=== PATIENT | female | born 1990 | race Caucasian/White ===

== ENCOUNTER 2016-12-19 03:33 | Emergency (ER) | payer OTHER ==
[~2016-12-19] VITALS: Ht 165.1 cm; Wt 70.3 kg
[~2016-12-19 03:33] MED LIST: FERRALET 90 TA1 EACH PO; IBUPROFEN800 M1 PO; LASIX20 M1 PO; PERCOCET 5-3251 EACH PO; POTASSIUM CHLO20 ME2 PO; PRENATAL TABLE1 EAC2 PO
--- NOTE | 2016-12-19 03:51 | ED NECK/BACK PAIN COMPLAINT ---
History of Present Illness General Chief Complaint: General Adult Stated Complaint: MID BACK PAIN TRAVELS TO [facility] Source: patient Exam Limitations: no limitations Vital Signs & Intake/Output Vital Signs & Intake/Output Vital Signs Date Time Temp Pulse Resp B/P Pulse O2 O2 Flow FiO2 Ox Delivery Rate 12/19 0449 97.4 87 18 111/57 97 Room Air 12/19 0414 Room Air 12/19 0350 97.5 93 18 139/79 97 Room Air Allergies Coded Allergies: NO KNOWN ALLERGIES (01/09/16) Reconcile Medications Furosemide (Lasix) 20 MG TABLET 1 TAB PO DAILY edema Ibuprofen 800 MG TABLET 1 TAB PO TID PAIN Ibuprofen 800 MG TABLET 800 MG PO Q6P PRN PAIN SCALE 4-6 Iron Carb,Gl/FA/B12/C/Docusate (Ferralet 90 Tablet) 1 EACH TABLET 1 TAB PO DAILY anemia Oxycodone HCl/Acetaminophen (Percocet 5-325 MG Tablet) 1 EACH TABLET 1-2 TAB PO Q4P PRN PAIN Potassium Chloride 20 MEQ TAB.ER.PRT 1 TAB PO D electrolyte support Vit No.130/Iron/FA ( Tablet) 1 EACH TABLET 1 TAB PO DAILY vitamin support Triage Nurses Notes Reviewed? yes Onset: Abrupt Duration: hour(s): (3) Timing: single episode today Quality/Severity: moderate, dullness Location: lumbar spine Radiation: ABDOMEN Context: FROM SLEEP Method of Injury: NONE Modifying Factors: movement HPI: 26-year-old healthy breast-feeding female who presents to the ER with chief complaint of 3 hours worth of back pain bilaterally that radiates to the front of her abdomen. No nausea or vomiting. No fever or chills. She states the pain woke her up from sleep. She last ate yesterday around noon had a sandwich. She has some coffee in the evening. History of similar symptoms that self resolves on its own. She denies any history of gallbladder stones UTIs or pyelonephritis. Patient has no chest pain is not short of breath. She is not on control pills. Past History Travel History Traveled to [place] past 21 day No Medical History Any Pertinent Medical History? none Tetanus Vaccine: Surgical History Surgical History: non-contributory Psychosocial History What is your primary language Bulgarian Family History Hx Contributory? No Review of Systems Review of Systems Constitutional: Denies: chills, fever. Eyes: Reports: no symptoms. Ears, Nose, Throat, Mouth: Reports: no symptoms. Respiratory: Denies: cough, short of breath. Cardiovascular: Denies: chest pain, palpitations. Gastrointestinal/Abdominal: Reports: abdominal pain. Denies: diarrhea, nausea, vomiting. Musculoskeletal: Reports: back pain, muscle pain. Skin: Denies: erythema, rash. Neurological/Psychological: Reports: no symptoms. All Other Systems: Reviewed and Negative Physical Exam Physical Exam General Appearance: well developed/nourished, alert, awake, mild distress Head: atraumatic Eyes: Bilateral: PERRL, EOMI. Ears, Nose, Throat, Mouth: hearing grossly normal Neck: normal inspection, supple, full range of motion Respiratory: normal breath sounds Cardiovascular: regular rate/rhythm Peripheral Pulses: 2+ radial (R), 2+ radial (L) Gastrointestinal: normal bowel sounds, soft, non-tender, NO REBOUND OR GUARDING Back: normal inspection, normal range of motion, PAIN WITH RANGE OF MOTION Extremities: normal range of motion Straight Leg Raising: Right: Negative. Left: Negative. Neurologic/Psych: awake, alert, oriented x 3, normal mood/affect Skin: intact, normal color, warm/dry Progress Differential Diagnosis: myofascial strain, pyelo/UTI, T/L spine injury, GERD, PUD, PANCREATITIS, CHOLELITHIASIS Plan of Care: Orders Procedure Date/time Status URINALYSIS 12/19 350 Complete LIPASE 12/19 350 Complete COMPREHENSIVE METABOLIC PANEL 12/19 350 Complete CBC WITHOUT DIFFERENTIAL 12/19 350 Complete Laboratory Tests 12/19/16 0402: Anion Gap 8, Estimated GFR > 60, BUN/Creatinine Ratio 22.9, Glucose 97, Calcium 9.7, Total Bilirubin 0.3, AST 16, ALT 33, Alkaline Phosphatase 65, Total Protein 6.8, Albumin 4.0, Globulin 2.8, Albumin/Globulin Ratio 1.4, Lipase 118, CBC w Diff NO MAN DIFF REQ, RBC 4.56, MCV 86.5, MCH 28.8, RDW 13.5, MPV 8.5, Gran % 66.6, Lymphocytes % 24.6, Monocytes % 6.2, Eosinophils % 2.1, Basophils % 0.5, Absolute Granulocytes 6.2, Absolute Lymphocytes 2.3, Absolute Monocytes 0.6, Absolute Eosinophils 0.2, Absolute Basophils 0, PUBS MCHC 33.3 12/19/16 0355: Urinalysis LIGHT H, Urine Color YEL, Urine Clarity HAZY H, Urine pH 6.0, Ur Specific [place] >= 1.030, Urine Protein 30 H, Urine Ketones TRACE H, Urine Nitrite NEG, Urine Bilirubin NEG, Urine Urobilinogen 0.2, Ur Leukocyte Esterase NEG, Ur Microscopic SEDIMENT EXAMINED, Urine RBC RARE, Urine WBC 1-3 H, Ur Epithelial Cells MANY H, Urine Bacteria MANY H, Urine Mucus FEW, Urine Hemoglobin NEG, Urine Glucose NEG PAIN RELIEF AFTER IM TORADOL. W/U UNREMARKABLE. 4:30 am reports relief after IM toradol. CMP pending. (PA HALEY,JIN) Departure Departure Time of Disposition: 443 Disposition: HOME OR SELF CARE Condition: Stable Clinical Impression Primary Impression: Low back strain Referrals: OSMANY HALEY,BALDO Salas (PCP/Family) Additional Instructions: TAKE THE IBUPROFEN 800MG DIRECTED. USE A HEATING PAD FOR PAIN RELIEF. PLEASE FOLLOW UP WITH YOUR DOCTOR REGARDING THESE EPISODES OF ABDOMINAL PAIN. RETURN TO THE ER FOR ANY CHANGING OR WORSENING SYMPTOMS. Departure Forms: Customer Survey General Discharge Information Prescriptions: Current Visit Scripts Ibuprofen 1 TAB PO TID #30 TAB
[2016-12-19 04:11] LABS: ABSOLUTE BASOPHIL COUNT 0 /CUMM (0.0-0.2); ABSOLUTE EOSINOPHIL COUNT 0.2 /CUMM (0.0-0.7); ABSOLUTE GRANULOCYTE CT 6.2 /CUMM (1.4-6.5); ABSOLUTE LYMPH COUNT 2.3 /CUMM (1.2-3.4); ABSOLUTE MONOCYTE COUNT 0.6 /CUMM (0.10-0.60); BASOPHIL % 0.5 % (0.0-2.0); EOSINOPHIL % 2.1 % (0-5); GRANULOCYTE % 66.6 % (42.2-75.2); HEMATOCRIT 39.5 % (37-47); MEAN CORPUSCULAR HGB 28.8 PG (27.0-31.0); MEAN CORPUSCULAR HGB CONC 33.3 G/DL (33.0-37.0); MEAN CORPUSCULAR VOLUME 86.5 FL (81.0-99.0); MEAN PLATELET VOLUME 8.5 FL (7.4-10.4); PLATELET COUNT 261 /CUMM (130-400); RBC DISTRIBUTION WIDTH 13.5 % (11.5-14.5); RED BLOOD CELL CT 4.56 /CUMM (4.20-5.40); WHITE BLOOD CELL COUNT 9.4 /CUMM (4.8-10.8)
[2016-12-19] MEDS ORDERED: IBUPROFEN800 M1 PO (04:45)
[2016-12-19 04:49] VITALS: BP 111/57
== END 2016-12-19 04:57 ==
LOC: ERH 03:33
PROVIDERS: Emergency Medicine
DX: S39.012A Strain of muscle, fascia and tendon of lower back, initial encounter (principal)
CPT/HCPCS: 81001; 96372; J1885

== ENCOUNTER 2017-03-24 10:02 | Emergency (ER) | payer OTHER ==
[~2017-03-24] VITALS: Ht 157.5 cm; Wt 86.2 kg
--- NOTE | 2017-03-24 10:59 | RADIOLOGY REPORT ---
EXAMINATION: XR TOES, LEFT CLINICAL INFORMATION: Pain to left great toe for 3 days COMPARISON: PA foot 06/14/2009. TECHNIQUE: 3 views of the great toe including a PA view of the foot obtained. FINDINGS: The alignment is normal. A lucency is seen through the lateral sesamoid at the head of the first metatarsal bone consistent with a minimally displaced sesamoid fracture. Correlate with tenderness in this region. There is associated soft tissue swelling. The phalanges are normal in appearance. IMPRESSION: Minimally displaced sesamoid fracture is seen adjacent to the first metatarsal bone.
[2017-03-24 11:15] VITALS: BP 128/76
--- NOTE | 2017-03-24 11:51 | ED UPPER/LOWER EXTREMITY COMPL ---
History of Present Illness General Chief Complaint: Foot or Ankle Injury Stated Complaint: LFT FOOT GREAT TOE PAIN/ NO KNOWN INJURY X 3DYS Source: patient Exam Limitations: no limitations Vital Signs & Intake/Output Vital Signs & Intake/Output Vital Signs Date Time Temp Pulse Resp B/P B/P Pulse O2 O2 Flow FiO2 Mean Ox Delivery Rate 03/24 1009 98.0 86 14 130/81 98 Room Air Allergies Coded Allergies: NO KNOWN ALLERGIES (01/09/16) Reconcile Medications Furosemide (Lasix) 20 MG TABLET 1 TAB PO DAILY edema Ibuprofen 800 MG TABLET 1 TAB PO TID PAIN Ibuprofen 800 MG TABLET 800 MG PO Q6P PRN PAIN SCALE 4-6 Iron Carb,Gl/FA/B12/C/Docusate (Ferralet 90 Tablet) 1 EACH TABLET 1 TAB PO DAILY anemia Oxycodone HCl/Acetaminophen (Percocet 5-325 MG Tablet) 1 EACH TABLET 1-2 TAB PO Q4P PRN PAIN Potassium Chloride 20 MEQ TAB.ER.PRT 1 TAB PO D electrolyte support Vit No.130/Iron/FA ( Tablet) 1 EACH TABLET 1 TAB PO DAILY vitamin support Triage Note: 27 Y/O FEMALE C/O 3 DAY HISTORY L GREAT TOE PAIN. DENIES KNOWN INJURY OR TRAUMA. DENIES OTHER COMPLAINTS. AMBULATORY WITH STEADY GAIT XRAY ORDERED. Triage Nurses Notes Reviewed? yes : No Patient currently breastfeeds: No HPI: 27F NO PMH PRESENTING WITH 3 DAYS OF INTRACTABLE LEFT FIRST TOE PAIN. DENIES TRAUMA TO THE TOE. DENIES FEVER, CHILLS, BLEEDING, DISCHARGE, SWELLING, ERYTHEMA. PAIN IS WORSE WHEN WALKING. Past History Travel History Traveled to [place] past 21 day No Medical History Any Pertinent Medical History? 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 No Review of Systems Review of Systems Constitutional: Reports: no symptoms. EENTM: Reports: no symptoms. Respiratory: Reports: no symptoms. Cardiovascular: Reports: no symptoms. Gastrointestinal/Abdominal: Reports: no symptoms. Genitourinary: Reports: no symptoms. Musculoskeletal: Reports: see HPI. Skin: Reports: no symptoms. Neurological/Psychological: Reports: no symptoms. Hematologic/Endocrine: Reports: no symptoms. Immunological: Reports: no symptoms. All Other Systems: Reviewed and Negative Physical Exam Physical Exam General Appearance: well developed/nourished, mild distress Head: atraumatic Eyes: Bilateral: PERRL, EOMI. Ears, Nose, Throat: normal pharynx, normal ENT inspection, hearing grossly normal Neck: normal inspection, supple Cardiovascular/Respiratory: regular rate/rhythm Back: normal inspection Foot Left: TENDERNESS TO LEFT FIRST TOE, ABLE TO MOVE IT, MOVEMENT LIMITED BY PAIN, SENSATION INTACT Skin: intact, normal color, warm/dry Lymphatic: no anterior cervical joselyn Progress Differential Diagnosis: arterial insufficiency, cellulitis, CHF, compartment syndrome, contusion, dislocation, DVT, fracture, gout, septic arthritis, sprain, tendon injury Plan of Care: TOE X-RAY, WRAP TOE IN TAPE Diagnostic Imaging: Viewed by Me: Radiology Read. Discussed w/RAD: Radiology Read. Radiology Impression: PATIENT: CLEMENTINA BECERRA PRESENT AGE: 27 PATIENT ACCOUNT NO: [id number] : 92 LOCATION: [facility] ORDERING PHYSICIAN: DONTAE WEI MD SERVICE DATE: 03/24/17 EXAM TYPE: RAD - XRY-TOES, LEFT EXAMINATION: XR TOES, LEFT CLINICAL INFORMATION: Pain to left great toe for 3 days COMPARISON: PA foot 06/14/2009. TECHNIQUE: 3 views of the great toe including a PA view of the foot obtained. FINDINGS: The alignment is normal. A lucency is seen through the lateral sesamoid at the head of the first metatarsal bone consistent with a minimally displaced sesamoid fracture. Correlate with tenderness in this region. There is associated soft tissue swelling. The phalanges are normal in appearance. IMPRESSION: Minimally displaced sesamoid fracture is seen adjacent to the first metatarsal bone. DICTATED BY: LIZA MERRILL MD DATE/TIME DICTATED:03/24/171048 PERIOPERATIVE ASSISTANT:MARE DATE/TIME TRANSCRIBED:03/24/171048 CONFIDENTIAL, DO NOT COPY WITHOUT APPROPRIATE AUTHORIZATION. <Electronically signed in Other Vendor System> SIGNED BY: LIZA MERRILL MD 03/24/17 1059 Departure Departure Time of Disposition: 1147 Disposition: HOME OR SELF CARE Condition: Stable Clinical Impression Primary Impression: Toe fracture, left Referrals: TIMMY HALEY,TESSIE DAMON APRN (PCP/Family) Additional Instructions: KEEP YOUR WEIGHT OFF YOUR TOE MUCH POSSIBLE. NO HIGH HEELED SHOES OR FOOTWEAR THAT PUTS PRESSURE ON YOUR TOE. MOTRIN FOR PAIN. Departure Forms: Customer Survey General Discharge Information
== END 2017-03-24 12:00 ==
LOC: ERH 10:02
DX: S92.312A Displaced fracture of first metatarsal bone, left foot, initial encounter for closed fracture (principal); X58.XXXA Exposure to other specified factors, initial encounter; Y92.9 Unspecified place or not applicable
CPT/HCPCS: 73660-LT

== ENCOUNTER 2018-06-13 21:10 | Emergency (ER) | payer OTHER ==
[~2018-06-13 21:10] MED LIST changes: +ADDERALL XR 1010 MG; +ALPRAZOLAM2 M2
--- NOTE | 2018-06-13 21:48 | ED GENERAL ADULT ---
History of Present Illness General Chief Complaint: Abdominal Pain/Flank Pain Stated Complaint: ABD PAIN Source: patient Exam Limitations: no limitations Vital Signs & Intake/Output Vital Signs & Intake/Output Vital Signs Date Time Temp Pulse Resp B/P B/P Pulse O2 O2 Flow FiO2 Mean Ox Delivery Rate 06/13 2320 98.7 85 18 127/69 99 Room Air 06/13 2120 Room Air 06/13 2112 97.6 87 18 135/74 98 Room Air Allergies Coded Allergies: No Known Allergies (06/07/18) Reconcile Medications Alprazolam (Unknown Strength) TABLET (Unknown Dose) ANX (Reported) Dextroamphetamine/Amphetamine (Adderall XR 10 MG Capsule) (Unknown Strength) CAP.ER.24H (Unknown Dose) PT (Reported) Ondansetron (Zofran Odt) 4 MG TAB.RAPDIS 1 TAB SL TID PRN nausea Vit No.130/Iron/FA ( Tablet) 1 EACH TABLET 1 TAB PO DAILY vitamin support Tylenol With Codeine (Tylenol With Codeine #3 Tablet) 300 MG-30 MG TABLET 1 TAB PO Q6 PRN pain Triage Note: PT TO TRIAGE WITH RUQ PAIN AND BACK PAIN X 1 DAY BUT WAS SEEN HERE EARLIER THIS MONTH FOR SAME. +N,V/D -URINARY S/SX. PT 6 WEEKS PREG WITH 4TH . DENIES ANY COMPLICATIONS. PT SENT IN BY [facility] TO R/O GALLBLADDER COMP. Triage Nurses Notes Reviewed? yes Onset: Gradual Duration: hour(s): Timing: constant : Yes Patient currently breastfeeds: No HPI: 28-year-old female at approximately 6 weeks gestation with a history of anxiety and ADD presenting with right upper quadrant pain over the past several hours. Reports sharp pain that radiates through to her back in her right shoulder blade. Pain started after eating a chicken wrap. Pain is associated with nausea, has not had any vomiting. She was seen in the emergency department last week for similar pain, but reports the pain had gone away and then returned today. She saw her primary care doctor who referred her into the emergency department for rule out cholecystitis. Denies fevers, chest pain, shortness of breath, diarrhea, melena, bloody stools, dysuria, urinary frequency/urgency, vaginal bleeding, vaginal discharge. Prior abdominal surgeries include 2 C- sections. (Macey Carla FINK) Past History Travel History Traveled to [place] past 21 day No Medical History Any Pertinent Medical History? 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 No (Carla Gerardo) Review of Systems Review of Systems Constitutional: Reports: no symptoms. EENTM: Reports: no symptoms. Respiratory: Reports: no symptoms. Cardiovascular: Reports: no symptoms. GI: Reports: see HPI. Genitourinary: Reports: no symptoms. Musculoskeletal: Reports: no symptoms. Skin: Reports: no symptoms. Neurological/Psychological: Reports: no symptoms. Hematologic/Endocrine: Reports: no symptoms. Immunologic/Allergic: Reports: no symptoms. All Other Systems: Reviewed and Negative (Carla Gerardo) Physical Exam Physical Exam General Appearance: well developed/nourished, no apparent distress, alert, awake Comments: Gen.: Well-nourished, well-developed, no acute distress. Head: Normocephalic, atraumatic. Eyes: Normal inspection bilaterally Ears: Normal inspection bilaterally Nose: Normal inspection Neck: Normal inspection Lungs: clear to auscultation bilaterally, normnal breath sounds Heart: regular rate and rhythm Abdomen: soft, nondistended, normal bowel sounds, tender to palpation in the right upper quadrant, no rebound or guarding, negative Larose sign Extremities: Normal inspection Neurologic: alert and oriented x3, steady gait Skin: warm and dry Psychiatric: Normal mood and affect, no apparent delusions or hallucinations, behavior appropriate Core Measures ACS in differential dx? No CVA/TIA Diagnosis: No Sepsis Present: No Sepsis Focused Exam Completed? No (Carla Gerardo) Progress Differential Diagnoses I considered the following diagnoses in my evaluation of the patient: [Biliary colic versus cholecystitis versus cholelithiasis versus choledocholithiasis versus cholangitis versus pancreatitis versus GERD versus peptic ulcer] Initial ED EKG: none (Carla Gerardo) Plan of Care: Orders Procedure Date/time Status LIPASE 06/13 2118 Complete LACTIC ACID 06/13 2118 Complete HEPATIC FUNCTION PANEL 06/13 2118 Complete HUMAN BETA HCG TITRE 06/13 2118 Complete CBC WITHOUT DIFFERENTIAL 06/13 2118 Complete BASIC METABOLIC PANEL 06/13 2118 Complete Laboratory Tests 06/13/180: Anion Gap 10, Estimated GFR > 60, BUN/Creatinine Ratio 20.0, Glucose 86, Lactic Acid 0.7, Calcium 9.6, Total Bilirubin 0.3, Direct Bilirubin 0.2, AST 18, ALT 24 , Alkaline Phosphatase 51, Total Protein 6.9, Albumin 4.2, Lipase 206, Beta HCG, Quant 96178.0, CBC w Diff NO MAN DIFF REQ, RBC 4.38, MCV 86.1, MCH 29.0, MCHC 33.8, RDW 14.1, MPV 8.0, Gran % 67.8, Lymphocytes % 22.8, Monocytes % 6.7, Eosinophils % 2.0, Basophils % 0.7, Absolute Granulocytes 8.2 H, Absolute Lymphocytes 2.8, Absolute Monocytes 0.8 H, Absolute Eosinophils 0.2, Absolute Basophils 0.1 06/13/182117: Urine Color Cancelled, Urine Clarity Cancelled, Urine pH Cancelled, Ur Specific [place] Cancelled, Urine Protein Cancelled, Urine Ketones Cancelled, Urine Nitrite Cancelled, Urine Bilirubin Cancelled, Urine Urobilinogen Cancelled, Ur Leukocyte Esterase Cancelled, Ur Microscopic Cancelled, Urine Hemoglobin Cancelled, Urine Glucose Cancelled US IMPRESSION: Cholelithiasis. No acute change of the gallbladder wall. There is positive ultrasound Larose's sign however. There is no bile duct dilatation. Labs show mild leukocytosis to 12. Normal LFT's. Given surgery follow-up, but counseled that she will likely not be scheduled for elective cholecystectomy until after she gives . Counseled on dietary changes to prevent biliary colic flareups. Instructed to use Tylenol, and given Tylenol with codeine for severe pain. She will follow-up with her OB for reevaluation. Given strict return precautions. Patient discussed with the ED attending. (Macey FINK,Carla) (Mary HALEY,Ry Doyle) Departure Departure Disposition: HOME OR SELF CARE Condition: Stable Clinical Impression Primary Impression: Cholelithiasis Referrals: Miri Farooq APRN (PCP/Family) Paul HALEY,Jose Luis Baca Additional Instructions: Use Tylenol as needed for pain. You may use Tylenol with codeine as needed for breakthrough pain. Use Zofran as needed for nausea. Follow-up with OB and surgery for further evaluation. Return to the emergency department for any new or worsening symptoms. Departure Forms: Customer Survey General Discharge Information Prescriptions: Current Visit Scripts Ondansetron (Zofran Odt) 1 TAB SL TID PRN nausea #20 TAB Tylenol With Codeine (Tylenol With Codeine #3 Tablet) 1 TAB PO Q6 PRN pain #12 TAB (Carla Gerardo) PA/HEALTH SERVICES RN Co-Sign Statement Statement: ED Attending supervision documentation- [X] 06/13/2018 11:38:04 PM I saw and evaluated the patient. I have also reviewed all the pertinent lab results and diagnostic results. I agree with the findings and the plan of care as documented in the PA's/HEALTH SERVICES RN's documentation. The patient currently is without complaint and appears comfortable. She presents after an episode of right upper quadrant abdominal pain is likely related to the gallstones seen on imaging. [] I have reviewed the ED Record and agree with the PA's/HEALTH SERVICES RN's documentation. [] Additions or exceptions (if any) to the PAs/HEALTH SERVICES RN's note and plan are summarized below: [] (Mary HALEY,Ry Doyle) Critical Care Note Critical Care Note Critical Care Time: non-applicable (Carla Gerardo)
--- NOTE | 2018-06-13 22:04 | ULTRASOUND REPORT ---
EXAMINATION: US ABDOMEN LIMITED CLINICAL INFORMATION: Right upper quadrant pain. COMPARISON: Ultrasound of the abdomen 01/25/2017 TECHNIQUE: Real-time imaging of the right upper quadrant abdominal viscera. FINDINGS: Exam limited by bowel gas and body habitus. PANCREAS: Portions of the pancreatic head are visualized are normal. The body and the tail the pancreas is obscured by the bowel gas. LIVER: Normal. The liver demonstrates normal size, contour and echogenicity. No focal lesion or intrahepatic biliary duct dilatation. GALLBLADDER: There is a gallstone within the gallbladder measuring 7 mm. There is no gallbladder wall thickening or pericholecystic fluid. There is positive ultrasound Larose's sign. COMMON BILE DUCT: Normal in caliber measuring 0.4 cm in diameter. RIGHT KIDNEY: Normal. No hydronephrosis. No renal calculi or focal parenchymal lesions. The kidney measures 9.6 cm in maximum dimension. FREE FLUID: None. IMPRESSION: Cholelithiasis. No acute change of the gallbladder wall. There is positive ultrasound Larose's sign however. There is no bile duct dilatation.
[2018-06-13 22:20] LABS: ABSOLUTE BASOPHIL COUNT 0.1 /CUMM (0.0-0.2); ABSOLUTE EOSINOPHIL COUNT 0.2 /CUMM (0.0-0.7); ABSOLUTE GRANULOCYTE CT 8.2 /CUMM (1.4-6.5); ABSOLUTE LYMPH COUNT 2.8 /CUMM (1.2-3.4); ABSOLUTE MONOCYTE COUNT 0.8 /CUMM (0.10-0.60); BASOPHIL % 0.7 % (0.0-2.0); GRANULOCYTE % 67.8 % (42.2-75.2); HEMATOCRIT 37.7 % (37-47); MEAN CORPUSCULAR HGB CONC 33.8 G/DL (33.0-37.0); MEAN CORPUSCULAR VOLUME 86.1 FL (81.0-99.0); PLATELET COUNT 279 /CUMM (130-400); RBC DISTRIBUTION WIDTH 14.1 % (11.5-14.5); RED BLOOD CELL CT 4.38 /CUMM (4.20-5.40); WHITE BLOOD CELL COUNT 12.1 /CUMM (4.8-10.8)
[2018-06-13 23:20] VITALS: BP 127/69
[2018-06-13] MEDS ORDERED: TYLENOL WITH C1 EACH PO (23:38)
[2018-06-13] MEDS ORDERED: ZOFRAN ODT4 M1 SL (23:38)
== END 2018-06-13 23:50 ==
LOC: ERH 21:10
PROVIDERS: Physician Assistant
DX: O99.611 Diseases of the digestive system complicating pregnancy, first trimester (principal); K80.20 Calculus of gallbladder without cholecystitis without obstruction; Z3A.01 Less than 8 weeks gestation of pregnancy; R10.11 Right upper quadrant pain; R11.0 Nausea; Z87.891 Personal history of nicotine dependence
CPT/HCPCS: 96361; 96374; J2405